=== PATIENT | female | born 1960 | race Two or more races ===

== ENCOUNTER 2018-03-06 12:53 | Inpatient (IN) | payer MEDICAID ==
[~2018-03-06] VITALS: Ht 162.6 cm; Wt 82.6 kg
[2018-03-06 12:58] VITALS: Ht 162.6 cm; Wt 82.6 kg
[2018-03-06 13:06] LABS: BASOPHIL % 0.4 % (0-2); PLATELET COUNT 174 x10^3mcL (130-400); RED CELL DISTRIBUTION WIDTH 13.4 % (11.5-14.5)
[2018-03-06 13:12] LABS: microscopic required? NO
[2018-03-06 13:24] LABS: ALBUMIN 4.3 g/dL (3.4-5.0); ALKALINE PHOSPHATASE 90 U/L (46-116); ALT/SGPT 25 U/L (14-59); AMYLASE 53 U/L (25-115); AST/SGOT 19 U/L (15-37); BILIRUBIN TOTAL 0.26 mg/dL (0.20-1.00); CALCIUM 10.6 mg/dL (8.5-10.1); CHLORIDE SERUM 105 mmol/L (98-107); CREATININE SERUM 0.7 mg/dL (0.6-1.0); GFR1 > 60 mL/min; GLUCOSE SERUM 106 mg/dL (74-106); LIPASE 162 IU/L (73-393); POTASSIUM SERUM 4.1 mmol/L (3.5-5.1); SODIUM SERUM 141 mmol/L (136-145); TOTAL PROTEIN, SERUM 8.1 g/dL (6.4-8.2)
[2018-03-06 13:29] LABS: UA SPECIFIC GRAVITY 1.025 (1.005-1.035); urine erythrocyte NEGATIVE (NEGATIVE)
[2018-03-06] MEDS ORDERED: LEVOTHYROXIN0.025 M2 PO (15:23)
[2018-03-06 15:57] LABS: MAGNESIUM 1.9 mg/dL (1.8-2.4); PHOSPHOROUS 3.5 mg/dL (2.5-4.9)
[2018-03-06 16:04] LABS: T3 TOTAL 1.37 ng/mL
[2018-03-06 16:29] VITALS: BP 152/62
[2018-03-06 16:47] LABS: FREE T4 0.98 ng/dL (0.76-1.46); FREE THYROXINE INDEX 3.1 ug/dL (1.4-4.5)
[2018-03-06 17:32] VITALS: BP 152/62
[2018-03-06 20:44] VITALS: BP 124/64
[2018-03-06 21:15] LABS: AMPHETAMINE QUAL UR NONE DETECTED (See below)
[2018-03-07 05:46] VITALS: BP 109/56
[2018-03-07 06:06] LABS: BASOPHIL % 0.3 % (0-2); PLATELET COUNT 144 x10^3mcL (130-400); RED CELL DISTRIBUTION WIDTH 13.3 % (11.5-14.5)
[2018-03-07 06:33] LABS: CALCIUM 9.3 mg/dL (8.5-10.1); CARBON DIOXIDE 25.4 mmol/L (21-32); CHLORIDE SERUM 105 mmol/L (98-107); GFR1 > 60 mL/min; GLUCOSE SERUM 98 mg/dL (74-106); POTASSIUM SERUM 3.9 mmol/L (3.5-5.1); SODIUM SERUM 137 mmol/L (136-145)
[2018-03-07 10:18] VITALS: BP 105/54
[2018-03-07 18:10] VITALS: BP 122/57
[2018-03-07 20:51] VITALS: BP 124/66
[2018-03-08 05:12] VITALS: BP 115/61
[2018-03-08 06:30] LABS: BASOPHIL % 0.4 % (0-2); PLATELET COUNT 132 x10^3mcL (130-400); RED CELL DISTRIBUTION WIDTH 13.1 % (11.5-14.5)
[2018-03-08 06:49] LABS: CALCIUM 9.4 mg/dL (8.5-10.1); CARBON DIOXIDE 24.8 mmol/L (21-32); CHLORIDE SERUM 110 mmol/L (98-107); CREATININE SERUM 0.6 mg/dL (0.6-1.0); GFR1 > 60 mL/min; GLUCOSE SERUM 97 mg/dL (74-106); POTASSIUM SERUM 3.9 mmol/L (3.5-5.1); SODIUM SERUM 141 mmol/L (136-145)
[2018-03-08] MEDS ORDERED: FLO4 PO (09:01)
[2018-03-08] MEDS ORDERED: COLACE100 MG PO (09:02)
[2018-03-08] MEDS ORDERED: NORCO1 TA2 PO (09:03)
[2018-03-08 09:32] VITALS: BP 126/67
[2018-03-08 12:20] VITALS: BP 126/67
== END 2018-03-08 13:00 | disposition home or self-care (01) | DRG 465 ==
LOC: ED 12:53 → MU 15:17
PROVIDERS: Internal Medicine; Specialist
DX: N13.2 Hydronephrosis with renal and ureteral calculous obstruction (principal); N17.0 Acute kidney failure with tubular necrosis; R31.0 Gross hematuria; E03.9 Hypothyroidism, unspecified; R73.03 Prediabetes; E78.5 Hyperlipidemia, unspecified; Z68.24 Body mass index [BMI] 24.0-24.9, adult
CPT/HCPCS: 83880; 84439; J1885; J2270; J2405; J3010; J7030